=== PATIENT | male | born 1990 | race Caucasian/White ===

== ENCOUNTER 2019-05-01 02:34 | Emergency (ER) | payer SELFPAY ==
[2019-05-01] MEDS ORDERED: diphenhydrAMINE 50 MG Cap PO ONE (03:08)
--- NOTE | 2019-05-01 03:10 | EDM.PDOC ---
ED [facility] GENERAL MEDICAL PROBLEM - General Chief Complaint: Allergic Reaction Stated Complaint: PT IS POSSIBLY HAVING AN ALLERGIC REACTION Time Seen by Provider: 05/01/19 03:10 - History of Present Illness INITIAL COMMENTS - FREE TEXT/NARRATIVE: HPI 28-year-old male presents for evaluation of a brief period of feeling flushed, itchy, and with possible difficulty breathing his upper airway, symptoms occurred after he got up to go the bathroom after reexperience abdominal cramping. The patient reports he had normal bowel movement, felt the above symptoms and was concerned that his of an allergic reaction. The patient and present to the emergency department. The patient reports his symptoms are self limited. Denies a history of asthma, ectopy, or allergic reactions. No new known exposures. Takes no antihypertensives. No new medications. ROS with no recent constitutional symptoms. Exam HR 64, RR 18, BP 152/51, T 35.9C, SaO2 95% on room air. Gen: Pleasant, non-toxic appearing, resting comfortably HEENT: NC, AT, PEERL, EOMI. No stridor or stertor, oropharynx visually normal. Resp: Clear to auscultation bilaterally. Unlabored respirations with a normal work of breathing. No wheezing. Card: Regular rate and rhythm. Extremities warm and well perfused. GI: nontender to palpation throughout all quadrants, no rebound, guarding. : no suprapubic tenderness to palpation. MSK: No visible deformities, strength and tone without visually appreciable deficit. Neuro: alert and oriented 3, no facial asymmetry, vision and hearing WNL. Heme/Lymph: Deferred Skin: Normal color with no visible lesions (other than noted above). No rashes. Psych: Mood and affect appropriate. MDM Previous chart, nursing note, and vitals reviewed. A: 28-year-old male presents for evaluation of a brief period of feeling flushed , itchy, and with possible difficulty breathing his upper airway, symptoms occurred after he got up to go the bathroom after reexperience abdominal cramping. DDx & Evaluation: patient well-appearing, no features consistent with allergic reaction or anaphylaxis, no features suggestive of angioedema. In an abundance of caution, the patient was given one dose diphenhydramine and discharged with PCP follow-up recommended. Return to care precautions provided. Impression: itching, flushing. - Related Data Allergies Allergy/AdvReac Type Severity Reaction Status Date / Time No Known Allergies Allergy Verified 05/01/19 02:41 Home Meds: Home Meds . [No Known Home Meds] 05/01/19 [History] Past Medical History Cardiovascular History: Reports: Hypertension - Infectious Disease History Infectious Disease History: Reports: Chicken Pox Social & Family History - Tobacco Use Packs/Tins Daily: 0.5 - Caffeine Use Caffeine Use: Reports: Soda - Recreational Drug Use Recreational Drug Use: No ED ROS ALLERGIC REACTION - Review of Systems Review Of Systems: See Below ED EXAM GENERAL NO PERIP PULSE - Physical Exam Exam: See Below Course - Vital Signs Last Recorded V/S: Last Vital Signs Temp 35.9 C 05/01/19 02:42 Pulse 64 05/01/19 02:42 Resp 18 05/01/19 02:42 BP 152/51 H 05/01/19 02:42 Pulse Ox 95 05/01/19 02:42 - Orders/Labs/Meds Orders: Active Orders 24 hr Category Date Time Status diphenhydrAMINE [Benadryl] Med 05/01/19 03:08 Once 50 mg PO ONETIME ONE Medication Orders Diphenhydramine HCl (Benadryl) 50 mg PO ONETIME ONE Stop: 05/01/19 03:09 Meds: Medications Generic Name Dose Route Start Last Admin Trade Name Freq PRN Reason Stop Dose Admin Diphenhydramine HCl 50 mg 05/01/19 03:08 Benadryl PO 05/01/19 03:09 ONETIME ONE Departure - Departure Time of Disposition: 03:10 Disposition: Home, Self-Care 01 Clinical Impression: Flushing - Discharge Information Referrals: PCP,None [Primary Care Provider] - Additional Instructions: You were in seen in the [facility] Emergency Department for evaluation of possible allergic reaction, the time of your evaluation because of your symptoms is unclear, however there are no features suggestive of a life threatening allergic reaction. If you further itching you may take diphenhydramine as directed below. Please read and follow all of the instructions below. Please follow up with your primary care physician in 48 hours repeat evaluation. When calling for follow-up care, please make the office aware that this follow-up is from your recent emergency room visit. If for any reason you are refused follow-up, please contact the [facility] Emergency Department at and asked to speak to the emergency department charge nurse. Your care today was limited to identifying and treating emergent medical problems only. Many people have subtle differences in their test results that require follow up with their outpatient physician(s) to correctly determine if this represents a normal variation or concerning abnormality with respect to your specific health. The care given to you today was limited to identifying and treating emergent medical problems - you need to request a copy of all of your medical records from today's visit and follow up with your outpatient physician(s) to review both today's visit and your overall health. If you have any new symptoms or if you are at all concerned about your health please return immediately to the emergency department. Diphenhydramine (Brand Name: Benadryl) * Please take this medication as prescribed. * Adults may take 25 to 50 mg every 4 to 8 hours; maximum 300 mg a day. * Please take the medication for the full duration of the prescription. * If you feel you are experiencing a side effect, please call your physician or the emergency department. * This medication is used to treat allergic reactions, itching, and sleep problems. Diphenhydramine Side Effects: * This medication most commonly causes fatigue. It may also cause dizziness, thickening of mucus in the nose or throat, nausea, vomiting, difficulty urinating, and rarely feeling nervous or excitable. * Do not take more than prescribed, overdoses of this medication can be very dangerous. Diphenhydramine Precautions: * Before taking this product, tell your doctor or pharmacist if you are allergic to diphenhydramine. This product may contain inactive ingredients, which can cause allergic reactions or other problems. Talk to your pharmacist for more details. * Tell all of your health care providers that you take this drug. This includes your doctors, nurses, pharmacists, and dentists. * Do not take more than what your doctor told you to take. Taking more than you are told may raise your chance of very bad side effects. * Do not take this drug for longer than you were told by your doctor. * Avoid driving and doing other tasks or actions that call for you to be alert until you see how this drug affects you. * Do not use with other products that have diphenhydramine. * Avoid drinking alcohol while taking this drug. * Talk with your doctor before you use other drugs and natural products that slow your actions. * Tell your doctor if you are or plan on getting . You will need to talk about the benefits and risks of using this drug while you are . * Tell your doctor if you are breast-feeding. You will need to talk about any risks to your baby. If you are taking a liquid formulation, please be aware that some of these contain phenylalanine, please let both your doctor and pharmacist know if you have phenylketonuria (PKU). High Blood Pressure (Hypertension) When you were in the emergency department you had an abnormally high blood pressure. High blood pressure can be without symptoms. However high blood pressure can lead to many medical problems including kidney disease, strokes, and heart attacks. Your blood pressure may have been elevated due to pain or the stress of being in the emergency department, however half of people with an elevated blood pressure in the emergency department have detention problems with high blood pressure. Please see your primary care physician in 2-3 days for a repeat check of your blood pressure. This may help prevent many health serious problems in the future. Please return to the emergency department if you develop any of the following: chest pain, shortness of breath, new or severe headache, changes in vision or hearing, weakness, or if you are otherwise concerned about your health. Prescriptions: If you are uninsured or have financial difficulties with filling your prescription(s), you may consider using a free pharmacy discount service such as [employer] Yourself ([employer]) or [employer] ([employer]). These services allow you to search for a medication on your phone (or computer) and obtain a coupon that usually has a significant discount from the list kuhn at a pharmacy. Your physician as well as [facility] does not have a financial relationship with either of these services. You may also wish to speak with your physician to determine if lower cost prescriptions are possible. Obtaining primary care: 1. [facility] provides pediatrics (children), family medicine (children, adults, and some obstetrical care), and internal medicine (adults). Further specialty care is also available. Same day appointments are available. They may be contacted at [phone] and are open Thursday through Thursday 8 AM to [address] [facility] are located at [facility], [address] [place] [address]. 2. [facility] offers family medicine, internal medicine, women health, and further specialty care. [facility] may be contacted at [phone]. [facility] is located at [address] [place], [address]. 3. If you have health insurance, please also contact your insurer for a list of accepting providers under your policy, you may contact these providers for further health care. Occupational health: Work related injuries may consider following up with [facility], . Occupational health services are located at [address] [place] [address] and are open Thursday through Thursday from 7: 30 am to 5:00 pm. Obstetrical and Gynecological Care: [facility], , Thursday through Thursday 8 AM to [address] [place] [address]. Eyecare: If you have an eye injury you should follow up with your technical operations vice president or with [facility], at [phone] or [phone] , they are located at [address] [place] [address]. Dental Care Cody Donaldson DDS. [address] [place], [place]. Ph. [phone] Kit Donaldson DDS MS. [address] [facility] [address], [place], [place]. Ph. Ltuher Rivero DDS. [address] [place]. Ph. [phone] Won Jimenez DDS. [address] [facility] [address] [place], [place]. Ph. [phone] Maurice Metcalf DDS PC. [address] [place], [place]. Ph. Aiden Gonzalez DDS. [address] [facility]. Ph. [phone] [facility]. [address] [place], [place]. Ph. [phone] [facility]. [address], [place], [place]. Ph. [phone] [facility] [address] [place] [address]. Ph. [facility]. [address] [place] [address] [address] [place], [place]. Ph. [facility]. [address] [place], [place]. Ph. Sepsis Event Note - Evaluation Sepsis Screening Result: No Definite Risk - Focused Exam Vital Signs: Vital Signs Temp Pulse Resp BP Pulse Ox 05/01/19 02:42 35.9 C 64 18 152/51 H 95 Date Exam was Performed: 05/01/19 Time Exam was Performed: 03:09 - My Orders Last 24 Hours: My Active Orders 05/01/19 03:08 diphenhydrAMINE [Benadryl] 50 mg PO ONETIME ONE - Assessment/Plan Last 24 Hours: My Active Orders 05/01/19 03:08 diphenhydrAMINE [Benadryl] 50 mg PO ONETIME ONE
== END 2019-05-01 03:22 | disposition home or self-care (01) ==
LOC: MW.ED 02:34
DX: R23.2 Flushing (principal); L29.9 Pruritus, unspecified; I10 Essential (primary) hypertension; F17.210 Nicotine dependence, cigarettes, uncomplicated
CPT/HCPCS: 99283; A9270